=== PATIENT | male | born 1965 | race African-American/Black ===

== ENCOUNTER 2025-02-20 05:50 | Inpatient (IN) | payer BC, OTHER ==
[~2025-02-20] VITALS: Ht 167.6 cm; Wt 94.3 kg
--- NOTE | 2025-02-20 06:12 | ECG ---
[facility] Test Date: 2025-02-20 Test Time: 06:07:10 Pat Name: BERNIE MCKNIGHT Department: Room: 0246T Gender: M Title Vehicle Service Attendant: XENIA : 1965 Requested By: EMERGENCY EMERGENCY Order Number: [id number] Reading MD: Eugene Vazquez Measurements Intervals Oscar Rate: 57 P: 58 WI: 186 QRS: 8 QRSD: 82 T: 4 QT: 402 QTc: 392 Interpretive Statements Sinus rhythm Electronically Signed On 02-21-2025 15:07:13 PST by Eugene Vazquez Please click the below link to view image of tracing.
--- NOTE | 2025-02-20 06:37 | ED.PDOC ---
History of Present Illness HPI Comments 59 year old male with PMHx HTN presents to the ED with a chief complaint of dizziness onset 2 days. Patient states he has been experiencing intermittent dizziness, chest pain, shortness of breath, BLE swelling, elevated BP for the past 2 days. Upon ED arrival, BP was 136/78. Denies, fever, chills, nausea, vo miting, diarrhea, headache, abdominal pain, head injury, dysuria, hematuria. No other symptoms or modifying factors present at this time. Chief Complaint: Dizziness Time Seen by MD: 06:20 Reviewed Notes: Medications, Allergies Allergies: Coded Allergies: Penicillins (Verified Allergy, Unknown, 02/20/25) Information Source: Patient Mode of Arrival: Ambulatory Severity: Moderate Timing: Days Duration: Intermittent Prehospital treatment: None Past Medical History PAST MEDICAL HISTORY: HTN Surgical History: Denies all surgeries Family History Family History: Reviewed,noncontributory to illness, No family hx of Cancer, No family hx of DM, No family hx of Heart beto, No family hx of HTN, No family hx of Kidney beto, No family hx of Liver beto, No family hx of Lung beto, No family hx of Stroke Social History Smoker: Non-Smoker Alcohol: Occasionally Drugs: Marijuana Lives In: Home Constitutional: denies: chills, diaphoresis, fatigue, fever, malaise, sweats, weakness, others EENTM: denies: blurred vision, double vision, ear bleeding, ear discharge, ear drainage, ear pain, ear ringing, eye pain, eye redness, hearing loss, mouth pain, mouth swelling, nasal discharge, nose bleeding, nose congestion, nose pain, photophobia, tearing, throat pain, throat swelling, voice changes, others Respiratory: reports: shortness of breath; denies: cough, hemoptysis, orthopnea, SOB at rest, SOB with excertion, stridor, wheezing, others Cardiovascular: reports: chest pain, others (hypertension); denies: dizzy spells, diaphoresis, Dyspnea on exertion, edema, irregular heart beat, left arm pain, lightheadedness, palpitations, PND, syncope Gastrointestinal: denies: abdomen distended, abdominal pain, blood streaked bowels, constipated, diarrhea, dysphagia, difficulty swallowing, hematemesis, melena, nausea, poor appetite, poor fluid intake, rectal bleeding, rectal pain, vomiting, others Genitourinary: denies: burning, dysuria, flank pain, frequency, hematuria, incontinence, penile discharge, penile sore, pain, testicle pain, testicle swelling, urgency, others Neurological: reports: dizziness; denies: fainting, headache, left sided numbness, left sided weakness, numbness, paresthesia, pre-existing deficit, right sided numbness, right sided weakness, seizure, speech problems, tingling, tremors, weakness, others Musculoskeletal: reports: others (BLE swelling); denies: back pain, gout, joint pain, joint swelling, muscle pain, muscle stiffness, neck pain Integumetry: denies: bruises, change in color, change in hair/nails, dryness, laceration, lesions, lumps, rash, wounds, others Allergic/Immunocompromised: denies: Difficulty Healing, Frequent Infections, Hives, Itching, others Hematologic/Lymphatic: denies: anemia, blood clots, easy bleeding, easy bruising, swollen glands, others Endocrine: denies: excessive hunger, excessive sweating, excessive thirst, excessive urination, flushing, intolerance to cold, intolerance to heat, unexplained weight gain, unexplained weight loss, others Psychiatric: denies: anxiety, bipolar disorder, depression, hopeless, panic disorder, schizophrenia, sleepless, suicidal, others All Other Systems: Reviewed and Negative Physical Exam General Appearance: Moderate Distress, Normal HEENT: Normal ENT Inspection, Pharynx Normal, TMs Normal Neck: Full Range of Motion, Non-Tender, Normal, Normal Inspection Respiratory: Chest Non-Tender, Lungs Clear, No Accessory Muscle Use, No R espiratory Distress, Normal Breath Sounds Cardiovascular: No Edema, No JVD, No Murmur, No Gallop, Normal Peripheral Pulses, Regular Rate/Rhythm Breast Exam: Deferred Gastrointestinal: No Organomegaly, Non Tender, No Pulsatile Mass, Normal Bowel Sounds, Soft Genitalia: Deferred Pelvic: Deferred Rectal: Deferred Extremities: No calf tenderness, Normal capillary refill, Normal inspection, Normal range of motion, Non-tender, No pedal edema Musculoskeletal : Apperance: Normal Neurologic: Alert, 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 Was a procedure done?: No EKG EKG : Pulse Rate (adult): 57 Cardiac Rhythm: NSR Differential Dx Considerations may include: Anemia Electrolyte imbalance X-Ray, Labs, Meds, VS Vital Signs Date Time Temp Pulse Resp B/P (MAP) Pulse Ox O2 Delivery O2 Flow Rate FiO2 02/20/25 06:37 57 02/20/25 06:08 97.6 62 16 136/78 99 97.6 02/20/25 06:07 57 Lab Test 02/20/25 06:47 Range/Units White Blood Count 6.0 4.4-10.8 10^3/uL Red Blood Count 4.41 L 4.5-5.90 10^6/uL Hemoglobin 13.7 13.5-17.5 g/dL Hematocrit 40.4 L 41.0-53.0 % Mean Corpuscular Volume 91.6 80.0-100.0 fL Mean Corpuscular Hemoglobin 31.0 28.0-32.0 pg Mean Corpuscular Hemoglobin Concent 33.8 32.0-36.0 g/dL Red Cell Distribution Width 13.4 11.8-14.3 % Platelet Count 228 140-450 10^3/uL Mean Platelet Volume 7.2 6.9-10.8 fL Neutrophils (%) (Auto) 70.7 37.0-80.0 % Lymphocytes (%) (Auto) 21.1 10.0-50.0 % Monocytes (%) (Auto) 6.6 0.0-12.0 % Eosinophils (%) (Auto) 1.1 0.0-7.0 % Basophils (%) (Auto) 0.5 0.0-2.0 % Neutrophils # (Auto) 4.3 1.6-8.6 10 ^3/uL Lymphocytes # (Auto) 1.3 0.4-5.4 10 ^3/uL Monocytes # (Auto) 0.4 0-1.3 10 ^3/uL Eosinophils # (Auto) 0.1 0-0.8 10 ^3/uL Basophils # (Auto) 0 0-0.2 10 ^3/uL Nucleated Red Blood Cells 0.0 % Sodium Level 142 136-145 mmol/L Potassium Level 4.3 3.5-5.1 mmol/L Chloride Level 107 98-107 mmol/L Carbon Dioxide Level 28 20-31 mmol/L Anion Gap 7 5-15 Blood Urea Nitrogen 12 9-23 mg/dL Creatinine 0.98 0.700-1.30 mg/dL Glomerular Filtration Rate Calc 89 >90 mL/min BUN/Creatinine Ratio 12.2 10.0-20.0 Serum Glucose 96 74-106 mg/dL Calcium Level 9.6 8.7-10.4 mg/dL Troponin I High Sensitivity 3 L </=54 ng/L Patient alert. Complaining of chest pain. Vitals stable. Answering questions. EKG reviewed does not show any acute changes. Was given aspirin. Was given nitro. Blood pressure elevated. Explained to the patient. Continue monitoring. [place] [address] Ph: [phone] DIAGNOSTIC IMAGING Diagnostic Imaging Report : [id number] Signed PATIENT: BERNIE MCKNIGHT ACCT: [id number] UNIT: [id number] : 1965 LOC: ER ROOM / BED: / AGE / SEX: 59 / M ADM STATUS: REG ER SERVICE 2 ORDERING PHYSICIAN: ANDREW VIGIL MD PROCEDURE(s): CXRP - CHEST PORTABLE REASON: sob ORDER NUMBER(s): [id number], ACCESSION NUMBER(s): [id number] CLINICAL INFORMATION: Shortness of breath. TECHNIQUE: Single AP portable chest radiograph was obtained. COMPARISON: None FINDINGS: Lungs: Clear. Cardiac: Heart size is within normal limits. Pulmonary vasculature: Unremarkable. Mediastinum/mary ellen: Unremarkable. Bones: No acute osseous abnormality identified. Other: No other significant findings. IMPRESSION: No evidence of acute disease in the chest. ATED BY: BOY CHEUNG DO DICTATED DATE/TIME: 02/20/25705 SIGNED BY: BOY CHEUNG DO SIGNED DATE/TIME: 02/20/25705 CC: Time of 1ST Reevaluation: 06:50 Reevaluation 1ST: Unchanged Patient Education/Counseling: Diagnosis, Treatment, Prognosis Family Education/Counseling: No Family Present SEPSIS Sepsis Screen Date sepsis recognized/suspect: Feb 20, 2025 Time Sepsis recognized/suspect: 0612 Recent Procedure: No On Antibiotic Therapy: No Respiratory Rate >20: No Heart Rate >90: No Temp<36 C (96.8 F) or >38.3 C: No SBP <90 or MAP <65 mmHG: No New Acute Mental Status Change: No Is the patient on CPAP, BIPAP,: No Physician Orders Chest Portable (02/20/25 06:33) Urinalysis (02/20/25 06:33) Troponin-I Hs (02/20/25 07:34) Troponin-I Hs (02/20/25 09:34) Vital Signs Date Time Temp Pulse Resp B/P (MAP) Pulse Ox O2 Delivery O2 Flow Rate FiO2 02/20/25 06:37 57 02/20/25 06:08 97.6 62 16 136/78 99 97.6 02/20/25 06:07 57 Laboratory Tests Test 02/20/25 06:47 White Blood Count 6.0 10^3/uL (4.4-10.8) Departure 1 Departure Time of Disposition: 07:15 Impression: Primary Impression: Chest pain of unknown etiology Additional Impression: Hypertensive urgency Disposition: 09 ADMITTED INPATIENT Admit to: Med Surg Condition: Guarded Critical Care Note Critical Care Time?: Yes (90 min-critical care time only) Stability Stability form required: No Heart Score Heart Score: Heart Score Response (Comments) Value History Slightly Suspicious 0 EKG N/A 0 Age 45-64 1 Risk Factors >3 or Hx ASHD 2 Troponin Normal limit 0 Total 3 I personally scribed for ANDREW VIGIL MD ([email or web address]) on 02/20/25 at 06:37. Electronically submitted by June Peralta ([email or web address]). I personally scribed for ANDREW VIGIL MD ([email or web address]) on 02/20/25 at 07:32. Electronically submitted by June Peralta ([email or web address]). ANDREW VIGIL MD Feb 20, 2025 06:37
[2025-02-20 07:06] LABS: Hematocrit 40.4 % (41.0-53.0); Hemoglobin 13.7 g/dL (13.5-17.5); Mean Corpuscular Hemoglobin 31.0 pg (28.0-32.0); Mean Corpuscular Volume 91.6 fL (80.0-100.0); Nucleated Red Blood Cells % 0.0 %
--- NOTE | 2025-02-20 07:09 | DVH ---
CLINICAL INFORMATION: Shortness of breath. TECHNIQUE: Single AP portable chest radiograph was obtained. COMPARISON: None FINDINGS: Lungs: Clear. Cardiac: Heart size is within normal limits. Pulmonary vasculature: Unremarkable. Mediastinum/mary ellen: Unremarkable. Bones: No acute osseous abnormality identified. Other: No other significant findings. IMPRESSION: No evidence of acute disease in the chest.
[2025-02-20 07:12] LABS: Chloride 107 mmol/L (98-107); Potassium 4.3 mmol/L (3.5-5.1); Sodium 142 mmol/L (136-145)
[2025-02-20 07:13] LABS: Anion Gap 7 (5-15); Carbon Dioxide 28 mmol/L (20-31)
[2025-02-20 07:14] LABS: Calcium 9.6 mg/dL (8.7-10.4)
[2025-02-20 07:18] LABS: Glucose 96 mg/dL (74-106)
[2025-02-20 07:19] LABS: BUN/Creatinine Ratio 12.2 (10.0-20.0); Blood Urea Nitrogen 12 mg/dL (9-23)
[2025-02-20] MEDS: NITROGLYCERIN 0.4 MG SL TAB SL ONE (08:01)
[2025-02-20 09:52] LABS: Urine Protein, UAD Negative (Negative)
[2025-02-20] MEDS ORDERED: MORPHINE SULFATE INJ 2 MG/ml SYRG IV PRN (10:00)
[2025-02-20] MEDS ORDERED: NITROGLYCERIN 0.4 MG SL TAB SL PRN (10:00)
[2025-02-20 11:36] VITALS: PULSE 86; O2SAT 96
[2025-02-20 13:00] VITALS: BP 128/67; PULSE 60; RESP 18; TEMP 97.6; O2SAT 98
--- NOTE | 2025-02-20 13:07 | DVHHPRES ---
History of Present Illness Resident Creating Document: SHARLENE PALOMARES RESIDENT History of Present Illness 59-year-old male patient with past medical history of hypertension presented with complaints of dizziness, chest pain, shortness of breath, bilateral lower extremity swelling and elevated blood pressure for one day. Patient mentioned that yesterday he started having dizziness and felt lethargic, mentioned "could not grab what is happening", was noted by and decided to come to the ER. He also mentioned associated chest pain which increased on deep breathing, increased on activity, no improvement with lying flat or leaning forward, sharp in quality, substernal in location. Patient mentioned that his blood pressure in the home was in 180s. He mentioned that in last weaker in [facility] he was previously admitted for similar complaints, and was told by the doctor that he has an abnormal EKG and abnormal lab values. He does not remembe r the specific lab values that were elevated. Patient also mentioned that yesterday he noticed bilateral lower extremity edema while he was sitting on the chair, but today does not mentioned of any complaints of edema. Patient said that he has not walked one mile in a long time, but feels shortness of breath sometimes when he is going to the restroom. He also mentioned occasionally waking up in the night catching breath. He denied any palpitations, headache, nausea, vomiting, abdominal pain, diarrhea, constipation. Past medical history Hypertension past surgical history No Recent surgery Medication history Chlorthalidone Losartan Amlodipine Allergic history Penicillins Family history "Heart attack" : Mother at the age age of 55 Stomach cancer: Father Social history Patient denied smoking, mentioned occasional marijuana intake, denied other drugs intake Drinks 3-4 beers every day, last drink was yesterday Patient is changing his PCP as he moved from [place], was supposed to have 1st appointment today Review of Systems Review of Systems As described in the HPI Allergies: Coded Allergies: Penicillins (Verified Allergy, Unknown, 02/20/25) Medications Current Medications Medications Dose Ordered Sig/Onur Route Start Time Stop Time Status Last Admin Dose Admin Nitroglycerin 0.4 mg Q5MINP PRN SL 02/20/25 10:00 Morphine Sulfate 2 mg Q30M PRN IV 02/20/25 10:00 Exam Vital Signs Vital Signs Date Time Temp Pulse Resp B/P (MAP) Pulse Ox O2 Delivery O2 Flow Rate FiO2 02/20/25 10:22 165/73 02/20/25 10:06 98.1 58 15 98 98.1 Exam Examination General Appearance: Alert, Oriented X3, Cooperative, No acute distress HEENT: EOMI Respiratory: Clear to auscultation, Normal air movement Cardiovascular: Regular rate, Normal S1, Normal S2 Abdominal: Normal bowel sounds Extremities: No cyanosis, No edema, Normal pulses, No tenderness/swelling Skin: No rashes, No breakdown Neuro: Normal speech and tone Labs/Xrays Labs Test 02/20/25 11:05 02/20/25 08:02 02/20/25 07:52 02/20/25 06:47 Range/Units D-Dimer, Quantitative 0.29 0.0-0.49 mg/L FEU B-Type Natriuretic Peptide 31.51 0-100 pg/mL Urine Color Colorless Yellow Urine Clarity Clear Clear Urine pH 7.0 5.0-9.0 Urine Specific Mccool 1.010 1.001-1.035 Urine Protein Negative Negative Urine Ketones Negative Negative Urine Blood Negative Negative /uL Urine Nitrite Negative Negative Urine Bilirubin Negative Negative Urine Urobilinogen Normal Negative mg/dL Urine Leukocyte Esterase Negative Negative /uL Urine RBC <1 0 - 3 /hpf Urine Microscopic WBC < 1 0-3 /HPF Urine Squamous Epithelial Cells None seen <5 /hpf Urine Bacteria None seen None Seen /hpf Urine Glucose Normal Normal mg/dL Troponin I High Sensitivity 3 L </=54 ng/L White Blood Count 6.0 4.4-10.8 10^3/uL Red Blood Count 4.41 L 4.5-5.90 10^6/uL Hemoglobin 13.7 13.5-17.5 g/dL Hematocrit 40.4 L 41.0-53.0 % Mean Corpuscular Volume 91.6 80.0-100.0 fL Mean Corpuscular Hemoglobin 31.0 28.0-32.0 pg Mean Corpuscular Hemoglobin Concent 33.8 32.0-36.0 g/dL Red Cell Distribution Width 13.4 11.8-14.3 % Platelet Count 228 140-450 10^3/uL Mean Platelet Volume 7.2 6.9-10.8 fL Neutrophils (%) (Auto) 70.7 37.0-80.0 % Lymphocytes (%) (Auto) 21.1 10.0-50.0 % Monocytes (%) (Auto) 6.6 0.0-12.0 % Eosinophils (%) (Auto) 1.1 0.0-7.0 % Basophils (%) (Auto) 0.5 0.0-2.0 % Neutrophils # (Auto) 4.3 1.6-8.6 10 ^3/uL Lymphocytes # (Auto) 1.3 0.4-5.4 10 ^3/uL Monocytes # (Auto) 0.4 0-1.3 10 ^3/uL Eosinophils # (Auto) 0.1 0-0.8 10 ^3/uL Basophils # (Auto) 0 0-0.2 10 ^3/uL Nucleated Red Blood Cells 0.0 % Sodium Level 142 136-145 mmol/L Potassium Level 4.3 3.5-5.1 mmol/L Chloride Level 107 98-107 mmol/L Carbon Dioxide Level 28 20-31 mmol/L Anion Gap 7 5-15 Blood Urea Nitrogen 12 9-23 mg/dL Creatinine 0.98 0.700-1.30 mg/dL Glomerular Filtration Rate Calc 89 >90 mL/min BUN/Creatinine Ratio 12.2 10.0-20.0 Serum Glucose 96 74-106 mg/dL Calcium Level 9.6 8.7-10.4 mg/dL SEPSIS Sepsis Screen Date sepsis recognized/suspect: Feb 20, 2025 Time Sepsis recognized/suspect: 611 Recent Procedure: No On Antibiotic Therapy: No Respiratory Rate >20: No Heart Rate >90: No Temp<36 C (96.8 F) or >38.3 C: No SBP <90 or MAP <65 mmHG: No New Acute Mental Status Change: No Is the patient on CPAP, BIPAP,: No Physician Orders Chest Portable (02/20/25 06:33) Admit (02/20/25 09:54) Allergies (02/20/25 09:54) Code Status (02/20/25 09:54) Complete Blood Count (02/21/25 04:00) Comprehensive Metabolic Panel (02/21/25 04:00) Echo 2d Mode Cardiac Dop (02/20/25 09:54) Nitroglycerin Sublingual (Ntrostat Subli (02/20/25 10:00) Morphine Sulfate Injection (02/20/25 10:00) Notify Of Changes From Base (02/20/25 09:54) Brand Leader For 24 Hours (02/20/25 09:54) Emergency Dysrhythmia Protocol (02/20/25 09:54) Rhythm Strips Once Every Shift (02/20/25 09:54) Electrocardigram (02/20/25 09:54) Renin Activity And Aldosterone (02/20/25 09:54) Drug Screen (02/20/25 09:54) Vital Signs Date Time Temp Pulse Resp B/P (MAP) Pulse Ox O2 Delivery O2 Flow Rate FiO2 02/20/25 10:22 165/73 02/20/25 10:06 98.1 58 15 165/73 (103) 98 98.1 02/20/25 08:01 129/79 02/20/25 07:49 55 02/20/25 07:49 98.6 55 16 129/79 (96) 100 98.6 02/20/25 06:37 57 02/20/25 06:08 97.6 62 16 136/78 99 97.6 02/20/25 06:07 57 Laboratory Tests Test 02/20/25 06:47 White Blood Count 6.0 10^3/uL (4.4-10.8) Medications Medications Dose Ordered Sig/Onur Route Start Time Stop Time Status Last Admin Dose Admin Aspirin 325 mg ONCE ONCE PO 02/20/25 06:45 02/20/25 06:46 DC 02/20/25 07:58 325 MG Nitroglycerin 0.4 mg ONCE ONCE SL 02/20/25 06:45 02/20/25 06:46 DC 02/20/25 08:01 0.4 MG Assessment/Plan Assessment/Plan Assessment/plan # hypertensive crisis, currently resolved # hypertension, likely essential hypertension, currently on three antihypertensive medications, ? Resistant hypertension # chest pain, likely due to hypertensive crisis, possibility of coronary artery disease considering multiple risk factors including family history, associated symptoms of dyspnea, pedal edema, PND # ?Heart failure, systolic/diastolic heart failure -resume oral home Meds for hypertension -chest x-ray and EKG -BNP and echo for evaluation for heart failure -renin/angiotensin levels for evaluation of questionable resistant hypertension -D-dimer to rule out PE, low risk, Well score 0 ( considering the type of pruritic chest pain which increases on deep inspiration ) -TSH/hemoglobin A1c/lipid panel ( workup for hypertension) Cardiology consulted for evaluation for stress test Aspirin 325 mg was given in the ER Continue with 81 mg daily as of now, DC if CAD ruled out # hyperlipidemia -resume atorvastatin home Meds 40 mg HS Ordered lipid panel # DVT prophylaxis Patient is currently ambulatory Code status discussed with the patient for greater than 21 minutes, full code Case discussion with Dr. Mei Plan discussed with: Patient, Other My Orders Orders - SHARLENE PALOMARES Procedure Category Date Status Time Admit ADMIT 02/20/25 Transmitted 09:54 Allergies HERRERA 02/20/25 In Process 09:54 Code Status CODE 02/20/25 Transmitted 09:54 Complete Blood Count LAB 02/21/25 Verified 04:00 Comprehensive LAB 02/21/25 Verified Metabolic Panel 04:00 Echo 2d Mode Cardiac US 02/20/25 Transmitted DOP 09:54 Nitroglycerin PHA 02/20/25 In Process Sublingual (Ntrostat 10:00 Morphine Sulfate PHA 02/20/25 In Process Injection 10:00 Notify Of Changes [facility] 02/20/25 In Process From Base 09:54 Brand Leader For [facility] 02/20/25 In Process 24 Hours 09:54 Emergency Dysrhythmia [facility] 02/20/25 In Process Protocol 09:54 Rhythm Strips Once [facility] 02/20/25 In Process Every Shift 09:54 Electrocardigram EKG 02/20/25 Logged 09:54 Renin Activity And LAB 02/20/25 In Process Aldosterone 09:54 Drug Screen LAB 02/20/25 Logged 09:54 Date of Service: Feb 20, 2025 Billing Provider: JAYA MEI MD Common Visit Codes: 17226-[id number] INP/OBS CARE (HIGH) Secondary Visit Codes: 26342-[id number] CARE PLAN 30 MINUTES SHARLENE PALOMARES Feb 20, 2025 13:07 JAYA MEI MD Feb 21, 2025 01:47
[2025-02-20] MEDS ORDERED: ATOR40TA52 PO (13:09)
[2025-02-20] MEDS ORDERED: CHLO25TA2 PO (13:09)
[2025-02-20] MEDS ORDERED: LOSA-534 PO (13:09)
[2025-02-20 14:33] LABS: Alanine Aminotransferase 25.0 U/L (7-40); Albumin 4.3 g/dL (3.2-4.8); Alkaline Phosphatase 107.0 U/L (46-116); Bilirubin, Direct 0.1 mg/dL (<0.3); Total Protein 7.0 g/dL (5.7-8.2)
[2025-02-20 14:34] LABS: Bilirubin, Total 0.4 mg/dL (0.2-1.0)
[2025-02-20 15:09] LABS: Triglycerides 66 mg/dL (< 150)
[2025-02-20 15:18] LABS: Cholesterol 237 mg/dL (< 200); HDL Cholesterol 104 mg/dL (40-59)
[2025-02-20 17:00] VITALS: BP 125/68; PULSE 60; RESP 18; TEMP 98; O2SAT 100
[2025-02-20 20:00] VITALS: PULSE 62; RESP 18; O2SAT 97
[2025-02-20 21:00] VITALS: BP 154/87; PULSE 62; RESP 18; TEMP 98.6; O2SAT 97
[2025-02-20] MEDS: ATORVASTATIN 20 MG TAB PO SCH (21:46)
[2025-02-20] MEDS: HYDROcodone-ACET 5/325MG TAB PO ONE (22:54)
[2025-02-20 23:45] LABS: Amphetamine Screen, Urine Neg (NEGATIVE); Barbiturate Scree,Urine Neg (NEGATIVE); Benzodiazephine Screen, Urine Neg (NEGATIVE); Cocaine Screen, Urine Neg (NEGATIVE); Opiate Scree,Urine Neg (NEGATIVE); Phencyclidine Screen, Urine Neg (NEGATIVE)
[2025-02-20 23:46] LABS: Cannabinoid Screen, Urine Pos (NEGATIVE)
[2025-02-21] VITALS (8 sets, daily range): BP systolic 120–150; BP diastolic 72–90; PULSE 54–69; RESP 17–18; TEMP 98.2–98.8; O2SAT 96–99
[2025-02-21 06:37] LABS: Hematocrit 41.4 % (41.0-53.0); Hemoglobin 14.2 g/dL (13.5-17.5); Mean Corpuscular Hemoglobin 31.1 pg (28.0-32.0); Mean Corpuscular Volume 90.6 fL (80.0-100.0); Nucleated Red Blood Cells % 0.0 %
[2025-02-21 07:11] LABS: Alanine Aminotransferase 21 U/L (7-40); Alkaline Phosphatase 78 U/L (46-116); Anion Gap 9 (5-15); BUN/Creatinine Ratio 10.4 (10.0-20.0); Blood Urea Nitrogen 11 mg/dL (9-23); Calcium 9.5 mg/dL (8.7-10.4); Carbon Dioxide 26 mmol/L (20-31); Chloride 105 mmol/L (98-107); Glucose 96 mg/dL (74-106); Potassium 3.9 mmol/L (3.5-5.1); Sodium 140 mmol/L (136-145); Total Protein 6.8 g/dL (5.7-8.2)
[2025-02-21 07:12] LABS: Albumin 4.0 g/dL (3.2-4.8); Bilirubin, Total 0.7 mg/dL (0.2-1.0)
[2025-02-21] MEDS: CHLORTHALIDONE 25 MG TAB PO SCH (09:25)
[2025-02-21] MEDS: LOSARTAN POTASSIUM 50 MG TAB PO SCH (09:26)
--- NOTE | 2025-02-21 10:49 | DVHINCON2 ---
LIANNA WINCHESTER [facility] 02/21/25 1049: Date Seen: Feb 21, 2025 Referring Physician MD Gayla Reason for Consultation Chest pain History of Present Illness This is a 59-year-old man who presented to the emergency room with a chief complaint of dizziness for approximately one week. The patient reports waking up yesterday morning with some dizziness and lightheadedness associated with chest pain described as substernal, nonradiating, non provoked, sharp in nature, and worse with inspiration. Also reports an associated systolic blood pressure in the 180s mmHg. States he has been compliant with the his losartan, amlodipine, and chlorthalidone therapy at home. Reports an optimal functional capacity including climbing flights of stairs without exertional angina or TRINH. He has undergone full cardiac work-up in the past including a stress test, transthoracic echocardiogram, and coronary angiogram with cardiac cat heterization ([facility] in [place], [place]) all with unremarkable findings. Significant medical history includes hypertension, dyslipidemia, obesity, alcohol dependance including 6 beers/day, and former cocaine use for 6 years quitting 20 years ago. Past Medical History Past medical history reviewed. No other significant than mentioned above. Past Surgical History Denies any past surgical history. Family History: Patient reports no known family medical history. Family History Family history reviewed. Mother from massive [place] at 59 y.o. Social History Denies the use of illicit drugs or tobacco use. Admits to daily alcohol use, six pack beer on daily basis. Quit cocaine use 20 years ago. Allergies: Coded Allergies: Penicillins (Verified Allergy, Unknown, 02/20/25) Home Meds Reported Medications Atorvastatin Calcium (ATORVASTATIN CALCIUM) 40 Mg Tab, 1 TAB PO DAILY 02/20/25 Losartan Potassium (Losartan Potassium) 50 Mg Tab, 1 TAB PO DAILY 02/20/25 Chlorthalidone (Chlorthalidone) 25 Mg Tab, 1 TAB PO DAILY 02/20/25 Home Meds Home medications reviewed. Current Medications Current Medications Medications (Trade) Dose Ordered Sig/Onur Route PRN Reason Start Time Stop Time Status Last Admin Chlorthalidone (Chlorthalidone) 25 mg DAILY PO 02/21/25 10:00 02/21/25 09:25 Losartan Potassium (Cozaar Tablet) 50 mg DAILY PO 02/21/25 10:00 02/21/25 09:26 Atorvastatin Calcium (Lipitor) 40 mg HS PO 12/1/25 22:00 02/20/25 21:46 Amlodipine Besylate (Norvasc Tablet) 5 mg DAILY PO 02/21/25 10:00 02/21/25 09:27 Aspirin 81 mg DAILY PO 02/21/25 10:00 02/21/25 09:26 Acetaminophen (Tylenol Tablet) 650 mg Q6HP PRN PO MILD PAIN (1-3 PAIN SCALE) 02/20/25 21:00 Review of Systems Constitutional: No symptom reported Ears, Nose, & Throat: No symptom reported Eyes: No symptom reported Neurological: Dizziness Pulmonary/Respiratory: No symptom reported Cardiovascular: Chest pain Gastrointestinal: No symptom reported Genitourinary: No symptom reported Musculoskeletal: No symptom reported Skin: No symptom reported Psychiatric: No symptom reported Endocrine: No symptom reported Hemotologic/Lymphatic: No symptom reported Vital Signs Vital Signs Date Time Temp Pulse Resp B/P (MAP) Pulse Ox O2 Delivery O2 Flow Rate FiO2 02/21/25 09:27 147/79 02/21/25 08:05 Room Air* 0 21 02/21/25 08:00 54 02/21/25 05:00 98.4 18 98 98.4 Physical Exam General Appearance: Cooperative. Well developed. Obese. In no acute distress Head Exam: Normal inspection Neck Exam: Normal inspection. Non-tender. Normal alignment Pulmonary/Respiratory: Chest non-tender. Clear bilateral breath sounds Cardiovascular/Chest: Regular rate and rhythm. S1, S2. Sinus rhythm. No JVD. Peripheral Pulses: 2+ Radial (R). 2+ Radial (L). 2+ Pedal (R). 2+ Pedal (L) Abdominal Exam: Normal bowel sounds Ankle Exam: Negative ankle edema Lower extremities: Negative lower extremity edema Neuro/Mental Status: A&O x4. Coherent Thoughts/Psych: Normal thought pattern. Appropriate mood and affect. Good judgement and insight Appearance: In no acute distress Skin Exam: Normal inspection. Normal color. Warm. Dry Labs/Diagnostic Data Labs Test 02/21/25 05:56 02/20/25 11:05 02/20/25 08:02 02/20/25 07:52 Range/Units White Blood Count 5.4 4.4-10.8 10^3/uL Red Blood Count 4.57 4.5-5.90 10^6/uL Hemoglobin 14.2 13.5-17.5 g/dL Hematocrit 41.4 41.0-53.0 % Mean Corpuscular Volume 90.6 80.0-100.0 fL Mean Corpuscular Hemoglobin 31.1 28.0-32.0 pg Mean Corpuscular Hemoglobin Concent 34.3 32.0-36.0 g/dL Red Cell Distribution Width 13.7 11.8-14.3 % Platelet Count 235 140-450 10^3/uL Mean Platelet Volume 7.2 6.9-10.8 fL Neutrophils (%) (Auto) 63.5 37.0-80.0 % Lymphocytes (%) (Auto) 26.8 10.0-50.0 % Monocytes (%) (Auto) 7.1 0.0-12.0 % Eosinophils (%) (Auto) 2.4 0.0-7.0 % Basophils (%) (Auto) 0.2 0.0-2.0 % Neutrophils # (Auto) 3.4 1.6-8.6 10 ^3/uL Lymphocytes # (Auto) 1.5 0.4-5.4 10 ^3/uL Monocytes # (Auto) 0.4 0-1.3 10 ^3/uL Eosinophils # (Auto) 0.1 0-0.8 10 ^3/uL Basophils # (Auto) 0 0-0.2 10 ^3/uL Nucleated Red Blood Cells 0.0 % Sodium Level 140 136-145 mmol/L Potassium Level 3.9 3.5-5.1 mmol/L Chloride Level 105 98-107 mmol/L Carbon Dioxide Level 26 20-31 mmol/L Anion Gap 9 5-15 Blood Urea Nitrogen 11 9-23 mg/dL Creatinine 1.06 0.700-1.30 mg/dL Glomerular Filtration Rate Calc 81 >90 mL/min BUN/Creatinine Ratio 10.4 10.0-20.0 Serum Glucose 96 74-106 mg/dL Calcium Level 9.5 8.7-10.4 mg/dL Total Bilirubin 0.7 0.2-1.0 mg/dL Aspartate Amino Transferase (AST) 20 13-40 U/L Alanine Aminotransferase (ALT) 21 7-40 U/L Alkaline Phosphatase 78 46-116 U/L Total Protein 6.8 5.7-8.2 g/dL Albumin 4.0 3.2-4.8 g/dL D-Dimer, Quantitative 0.29 0.0-0.49 mg/L FEU B-Type Natriuretic Peptide 31.51 0-100 pg/mL Urine Color Colorless Yellow Urine Clarity Clear Clear Urine pH 7.0 5.0-9.0 Urine Specific [place] 1.010 1.001-1.035 Urine Protein Negative Negative Urine Ketones Negative Negative Urine Blood Negative Negative /uL Urine Nitrite Negative Negative Urine Bilirubin Negative Negative Urine Urobilinogen Normal Negative mg/dL Urine Leukocyte Esterase Negative Negative /uL Urine RBC <1 0 - 3 /hpf Urine Microscopic WBC < 1 0-3 /HPF Urine Squamous Epithelial Cells None seen <5 /hpf Urine Bacteria None seen None Seen /hpf Urine Glucose Normal Normal mg/dL Urine Opiates Screen Neg NEGATIVE Urine Fentanyl Screen Neg NEGATIVE Urine Barbiturates Screen Neg NEGATIVE Urine Phencyclidine Screen Neg NEGATIVE Urine Amphetamines Screen Neg NEGATIVE Urine Benzodiazepines Screen Neg NEGATIVE Urine Cocaine Screen Neg NEGATIVE Urine Cannabinoids Screen Pos NEGATIVE Direct Bilirubin 0.1 <0.3 mg/dL Troponin I High Sensitivity 3 L </=54 ng/L Triglycerides Level 66 < 150 mg/dL Cholesterol Level 237 H < 200 mg/dL LDL Cholesterol 117 H < 100 mg/dL HDL Cholesterol 104 H 40-59 mg/dL Thyroid Stimulating Hormone (TSH) 2.75 0.55-4.78 uIU/mL Test 02/20/25 06:47 Range/Units Hemoglobin A1c 5.7 <5.7 % A1C Assessment Chest pain in the setting of hypertensive urgency Rule out structural heart disease Prediabetes, newly diagnosed Dyslipidemia Alcohol dependence Obesity Plan/Recommendation (Dr. Pat) The patient presents with chest pain in the setting of hypertensive urgency. A 12 lead electrocardiogram revealed a sinus bradycardia rhythm with nonspecific ST-T wave segment changes. Continue aggressive blood pressure control for a target SBP <140 mmHg as well as low-Na diet, lipid-lowering agent, and risk factor modifications. Continue further cardiac evaluation with a transthoracic echocardiogram to rule out structural heart disease. Consider an outpatient stress test if deemed necessary. In the setting of an unremarkable echocardiogram, there is no further cardiac workup indicated at this time. Thank you for allowing us to participate in this patient's care. Please call if you have any questions or concerns. This medical document was created using an electronic medical record system with voice recognition software and computerized dictation system. Although this document has been carefully reviewed, there might still be some phonetic and typographical errors. Occasional wrong-word or ``sound-alike substitutions may have occurred due to the inherent limitations of voice recognition software. These areas are purely typographical due to imperfections of the software programs and do not reflect any compromise in the patient's medical care. Please read the chart carefully and recognize, using context, where these substitutions have occurred. Plan discussed with: Patient, Spouse, Other [place]HA Physical activity limitations: NA Date of Service: Feb 21, 2025 Billing Provider: LIANNA WINCHESTER [facility]PATCH[facility] Cardiology Common Codes: 60121-[id number] INP/OBS CARE (High) KJ PAT MD 02/21/25 1123: Date Seen: Feb 21, 2025 Referring Physician ATTESTATION NOTE; Patient was seen and examined by myself. Plan was formulated with Enedina Winchester cardiology PA as above. Briefly this is a 59-year-old man with hypertension and prior history of cocaine use but no other known medical problems per patient's report. He presented after having an acute episode of pleuritic type chest pain yesterday when he was about to get ready to go to work. 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 Yesterday's episode happened at rest and when he took a deep breath. Patient reports he recently moved from [place] to the area. Reports he established PCP and has an upcoming appointment. Patient had prior cardiac workup including coronary angiogram and stress test in [facility] few years ago that were done for chest pain. Reports both times the tests were normal. Patient never had intervention or PCI. At the time of exam patient denies having chest pain or recurrence of his chest discomfort. High sensory troponin levels have been unremarkable. EKG does not suggest dynamic ischemic changes. Advised the patient to follow up with his upcoming PCP appointment for Cardiology referral to establish cardiac care in the area and further workup is indicated as outpatient. Patient expresses understanding and agrees with the plan Kj Pat Interventional and Structural Cardiology Family History: Patient reports no known family medical history. Allergies: Coded Allergies: Penicillins (Verified Allergy, Unknown, 02/20/25) Home Meds Reported Medications Atorvastatin Calcium (ATORVASTATIN CALCIUM) 40 Mg Tab, 1 TAB PO DAILY 02/20/25 Losartan Potassium (Losartan Potassium) 50 Mg Tab, 1 TAB PO DAILY 02/20/25 Chlorthalidone (Chlorthalidone) 25 Mg Tab, 1 TAB PO DAILY 02/20/25 LIANNA WINCHESTER Feb 21, 2025 10:49 KJ PAT MD Feb 21, 2025 11:23
--- NOTE | 2025-02-21 14:38 | DVHPN2 ---
Reviewed: H&P Changes from previous H/P or p: No Changes General: Per HPI Objective Vitals Vital Signs Date Time Temp Pulse Resp B/P (MAP) Pulse Ox O2 Delivery O2 Flow Rate FiO2 02/21/25 09:27 147/79 02/21/25 09:00 98.4 57 17 98 98.4 02/21/25 08:05 Room Air* 0 21 Intake/Output Intake and Output 02/21/25 07:00 Intake Total 1200 ml Output Total 800 ml Balance 400 ml Intake Oral 1200 ml Output Urine Total 800 ml Exam GEN: Healthy appearing, well-developed, NAD. HEENT: NC/AT; MMM. CV: RRR, no m/r/g. LUNGS: CTAB, no w/r/c. ABD: Soft, NT/ND, NBS, no masses or organomegaly. EXT: skin Warm, well perfused. no rashes. No clubbing, cyanosis, or edema. NEURO: Ambulating with no limitations. No focal deficits. Medications Current Medications Medications Dose Ordered Sig/Onur Route Start Time Stop Time Status Last Admin Dose Admin Nitroglycerin 0.4 mg Q5MINP PRN SL 02/20/25 10:00 Morphine Sulfate 2 mg Q30M PRN IV 02/20/25 10:00 Losartan Potassium 50 mg DAILY PO 02/21/25 10:00 02/21/25 09:26 50 MG Atorvastatin Calcium 40 mg HS PO 02/20/25 22:00 02/20/25 21:46 40 MG Amlodipine Besylate 5 mg DAILY PO 02/21/25 10:00 02/21/25 09:27 5 MG Aspirin 81 mg DAILY PO 02/21/25 10:00 02/21/25 09:26 81 MG Acetaminophen 650 mg Q6HP PRN PO 02/20/25 21:00 Tamsulosin HCl 0.4 mg QPM PO 02/21/25 18:00 Laboratory Results Laboratory Tests 02/21/25 05:56 Chemistry Test 02/21/25 05:56 Albumin 4.0 g/dL (3.2-4.8) Calcium Level 9.5 mg/dL (8.7-10.4) Total Protein 6.8 g/dL (5.7-8.2) LFT Test 02/21/25 05:56 Alanine Aminotransferase (ALT) 21 U/L (7-40) Alkaline Phosphatase 78 U/L (46-116) Aspartate Amino Transferase (AST) 20 U/L (13-40) Total Bilirubin 0.7 mg/dL (0.2-1.0) Urinalysis Test 02/20/25 08:02 Urine Color Colorless (Yellow) Urine Clarity Clear (Clear) Urine pH 7.0 (5.0-9.0) Urine Specific [place] 1.010 (1.001-1.035) Urine Protein Negative (Negative) Urine Ketones Negative (Negative) Urine Blood Negative /uL (Negative) Urine Nitrite Negative (Negative) Urine Bilirubin Negative (Negative) Urine Urobilinogen Normal mg/dL (Negative) Urine Leukocyte Esterase Negative /uL (Negative) Urine RBC <1 /hpf (0 - 3) Urine Microscopic WBC < 1 /HPF (0-3) Urine Squamous Epithelial Cells None seen /hpf (<5) Urine Bacteria None seen /hpf (None Seen) Urine Glucose Normal mg/dL (Normal) Labs and/or images reviewed: Labs reviewed by me, Image(s) reviewed by me Assessment/Plan Assessment/Plan 59-year-old male patient with past medical history of hypertension presented with complaints of dizziness, chest pain, shortness of breath, bilateral lower extremity swelling and elevated blood pressure for one day. Patient mentioned that yesterday he started having dizziness and felt lethargic, mentioned "could not grab what is happening", was noted by and decided to come to the ER. He also mentioned associated chest pain which increased on deep breathing, increased on activity, no improvement with lying flat or leaning forward, sharp in quality, substernal in location. Patient mentioned that his blood pressure in the home was in 180s. He mentioned that in last weaker in [facility] he was previously admitted for similar complaints, and was told by the doctor that he has an abnormal EKG and abnormal lab values. He does not remember the specific lab values that were elevated. Patient also mentioned that yesterday he noticed bilateral lower extremity edema while he was sitting on the chair, but today does not mentioned of any complaints of edema. Patient said that he has not walked one mile in a long time, but feels shortness of breath sometimes when he is going to the restroom. He also mentioned occasionally waking up in the night catching breath. He denied any palpitations, headache, nausea, vomiting, abdominal pain, diarrhea, constipation. 12/2: Waiting for echocardiogram. We will stop hydrochlorothiazide/chlorthalidone. We will continue amlodipine 5, continue losartan 50. We will start tamsulosin 0.4. Holding off finasteride. Per patient request. We will do postvoid residual, concern for BPH.. No rales, no pedal edema, no complaints of dyspnea on exertion. Low concern for CHF but we will get echo cardiogram given the concern for significant severe hypertension. Diagnosis: Hypertensive crisis Hypotension, incision hypotension, reason hypertension possible BPH likely Chest pain, likely due to above, Hypertensive heart disease possible, LVH possible, we will rule out diastolic heart failure Hyperlipidemia Plan: Cardiology consulted for evaluation for stress test Aspirin 325 mg was given in the ER Continue with 81 mg daily as of now, DC if CAD ruled out -resume atorvastatin home Meds 40 mg HS Ordered lipid panel Patient is currently ambulatory no DVT prophylaxis Tele Full code Plan discussed with: Patient My Orders Orders - WANDY MESA MD Procedure Category Date Status Time Tamsulosin PHA 02/21/25 In Process Hydrochloride (Flomax) 18:00 Bladder Scan ORDERS 02/21/25 Transmitted 13:51 Date of Service: Feb 21, 2025 Billing Provider: WANDY MESA MD Common Visit Codes: [id number] INP/OBS CARE(HIGH) WANDY MESA MD Feb 21, 2025 14:38
[2025-02-21] MEDS: TAMSULOSIN HYDROCHLORIDE 0.4 MG CAP PO SCH (17:57)
--- NOTE | 2025-02-21 18:23 | DVHSR ---
APPROVED REPORT EXAM: Two-dimensional and M-mode echocardiogram with Doppler and color Doppler. Blood Pressure: 132/84 mmHg INDICATION SOB with bilateral lower ext swelling, Rule out CHF RISK FACTORS Height: 66, Weight: 209 DIMENSIONS LVDd 4.5 (3.8-5.7cm) LA (2D) 4.2 (1.9-4.0cm) Aortic Root 4.3 (2.0-3.7cm) LVDs 3.1 (2.5-4.0cm) LA (MM) (1.9-4.0cm) Aortic Cusp Exc 1.8 (1.5-2.0cm) EF (%) 60.0 (55-70%) Rt. Atrium 3.9 (1.9-4.0cm) Asc. Aorta cm Mitral Valve Mitral Mitral Stenosis E wave 0.74m/s MV Mean GR. mmHg A wave 0.90m/s MV Peak GR. mmHg E/A ratio 0.8 2D MVA cm2 DECEL Time 321ms PRESS 1/2 Time 124ms IVRT ms Dop MVA 1.77cm2 Aortic Valve Aortic Valve Aortic Stenosis V1 1.18m/s AO Mean GR. 5mmHg V2 1.51m/s AO Peak GR. 9mmHg LVOT Diameter 2.1 (1.8-2.4cm) Doppler ALEX 2.71cm2 Pulmonic Valve V2 0.91m/s Tricuspid Valve TR Velocity 2.06m/s RVSP 21mmHg Conclusion Left ventricle: The cavity size is normal. Systolic function is normal. Calculated ejection fraction is 60%. Diastolic function is normal. Right ventricle: Systolic function is normal. Estimated RVSP is 21 mm Hg Aortic valve: the valve is tricuspid. There is no aortic stenosis or aortic regurgitation. Mitral valve: There is trace mitral regurgitation. There is no mitral stenosis. Tricuspid valve: There is mild tricuspid regurgitation. Pericardium: There is no pericardial effusion. Inferior vena cava catheterization the vessel is normal in size. There is normal respiratory phasic variation consistent with a right ischial pressure of3 mm Hg
[2025-02-22 01:00] VITALS: BP 118/70; PULSE 57; RESP 18; TEMP 98.2; O2SAT 94
[2025-02-22 05:00] VITALS: BP 122/72; PULSE 57; RESP 18; TEMP 98.4; O2SAT 99
[2025-02-22 06:35] LABS: Chloride 103 mmol/L (98-107); Potassium 4.0 mmol/L (3.5-5.1); Sodium 138 mmol/L (136-145)
[2025-02-22 06:36] LABS: Anion Gap 10 (5-15); Carbon Dioxide 25 mmol/L (20-31)
[2025-02-22 06:37] LABS: Calcium 10.0 mg/dL (8.7-10.4)
[2025-02-22 06:41] LABS: Glucose 94 mg/dL (74-106)
[2025-02-22 06:42] LABS: BUN/Creatinine Ratio 14.0 (10.0-20.0); Blood Urea Nitrogen 14 mg/dL (9-23)
[2025-02-22 08:00] VITALS: PULSE 61; RESP 17; O2SAT 100
[2025-02-22 09:00] VITALS: BP 147/94; PULSE 61; RESP 17; TEMP 98.2; O2SAT 100
[2025-02-22] MEDS: ACETAMINOPHEN 325 MG TAB PO PRN (09:07)
[2025-02-22] MEDS ORDERED: AMLO1TAB22 PO (11:13)
[2025-02-22] MEDS ORDERED: LOSA-534 PO (11:13)
--- NOTE | 2025-02-22 11:14 | DVHDS2 ---
Discharge Summary Date of Admission Feb 20, 2025 at 09:54 Date of Discharge: Feb 22, 2025 Labs/Diagnostic Data: Laboratory Results Test 02/22/25 05:43 02/21/25 05:56 02/20/25 11:05 02/20/25 08:02 Sodium Level 138 mmol/L (136-145) Potassium Level 4.0 mmol/L (3.5-5.1) Chloride Level 103 mmol/L (98-107) Carbon Dioxide Level 25 mmol/L (20-31) Anion Gap 10 (5-15) Blood Urea Nitrogen 14 mg/dL (9-23) Creatinine 1.00 mg/dL (0.700-1.30) Glomerular Filtration Rate Calc 87 mL/min (>90) BUN/Creatinine Ratio 14.0 (10.0-20.0) Serum Glucose 94 mg/dL (74-106) Calcium Level 10.0 mg/dL (8.7-10.4) White Blood Count 5.4 10^3/uL (4.4-10.8) Red Blood Count 4.57 10^6/uL (4.5-5.90) Hemoglobin 14.2 g/dL (13.5-17.5) Hematocrit 41.4 % (41.0-53.0) Mean Corpuscular Volume 90.6 fL (80.0-100.0) Mean Corpuscular Hemoglobin 31.1 pg (28.0-32.0) Mean Corpuscular Hemoglobin Concent 34.3 g/dL (32.0-36.0) Red Cell Distribution Width 13.7 % (11.8-14.3) Platelet Count 235 10^3/uL (140-450) Mean Platelet Volume 7.2 fL (6.9-10.8) Neutrophils (%) (Auto) 63.5 % (37.0-80.0) Lymphocytes (%) (Auto) 26.8 % (10.0-50.0) Monocytes (%) (Auto) 7.1 % (0.0-12.0) Eosinophils (%) (Auto) 2.4 % (0.0-7.0) Basophils (%) (Auto) 0.2 % (0.0-2.0) Neutrophils # (Auto) 3.4 10 ^3/uL (1.6-8.6) Lymphocytes # (Auto) 1.5 10 ^3/uL (0.4-5.4) Monocytes # (Auto) 0.4 10 ^3/uL (0-1.3) Eosinophils # (Auto) 0.1 10 ^3/uL (0-0.8) Basophils # (Auto) 0 10 ^3/uL (0-0.2) Nucleated Red Blood Cells 0.0 % Total Bilirubin 0.7 mg/dL (0.2-1.0) Aspartate Amino Transferase (AST) 20 U/L (13-40) Alanine Aminotransferase (ALT) 21 U/L (7-40) Alkaline Phosphatase 78 U/L (46-116) Total Protein 6.8 g/dL (5.7-8.2) Albumin 4.0 g/dL (3.2-4.8) D-Dimer, Quantitative 0.29 mg/L FEU (0.0-0.49) B-Type Natriuretic Peptide 31.51 pg/mL (0-100) Urine Color Colorless (Yellow) Urine Clarity Clear (Clear) Urine pH 7.0 (5.0-9.0) Urine Specific [place] 1.010 (1.001-1.035) Urine Protein Negative (Negative) Urine Ketones Negative (Negative) Urine Blood Negative /uL (Negative) Urine Nitrite Negative (Negative) Urine Bilirubin Negative (Negative) Urine Urobilinogen Normal mg/dL (Negative) Urine Leukocyte Esterase Negative /uL (Negative) Urine RBC <1 /hpf (0 - 3) Urine Microscopic WBC < 1 /HPF (0-3) Urine Squamous Epithelial Cells None seen /hpf (<5) Urine Bacteria None seen /hpf (None Seen) Urine Glucose Normal mg/dL (Normal) Urine Opiates Screen Neg (NEGATIVE) Urine Fentanyl Screen Neg (NEGATIVE) Urine Barbiturates Screen Neg (NEGATIVE) Urine Phencyclidine Screen Neg (NEGATIVE) Urine Amphetamines Screen Neg (NEGATIVE) Urine Benzodiazepines Screen Neg (NEGATIVE) Urine Cocaine Screen Neg (NEGATIVE) Urine Cannabinoids Screen Pos (NEGATIVE) Test 02/20/25 07:52 02/20/25 06:47 Direct Bilirubin 0.1 mg/dL (<0.3) Troponin I High Sensitivity 3 ng/L (</=54) Triglycerides Level 66 mg/dL (< 150) Cholesterol Level 237 mg/dL (< 200) LDL Cholesterol 117 mg/dL (< 100) HDL Cholesterol 104 mg/dL (40-59) Thyroid Stimulating Hormone (TSH) 2.75 uIU/mL (0.55-4.78) Hemoglobin A1c 5.7 % A1C (<5.7) Other Laboratory Tests 02/22/25 05:43 02/21/25 05:56 Brief Hx & Hospital Course: 59-year-old male patient with past medical history of hypertension presented with complaints of dizziness, chest pain, shortness of breath, bilateral lower extremity swelling and elevated blood pressure for one day. Patient mentioned that yesterday he started having dizziness and felt lethargic, mentioned "could not grab what is happening", was noted by and decided to come to the ER. He also mentioned associated chest pain which increased on deep breathing, increased on activity, no improvement with lying flat or leaning forward, sharp in quality, substernal in location. Patient mentioned that his blood pressure in the home was in 180s. He mentioned that in last weaker in [facility] he was previously admitted for similar complaints, and was told by the doctor that he has an abnormal EKG and abnormal lab values. He does not remember the specific lab values that were elevated. Patient also mentioned that yesterday he noticed bilateral lower extremity edema while he was sitting on the chair, but today does not mentioned of any complaints of edema. Patient said that he has not walked one mile in a long time, but feels shortness of breath sometimes when he is going to the restroom. He also mentioned occasionally waking up in the night catching breath. He denied any palpitations, headache, nausea, vomiting, abdominal pain, diarrhea, constipation. 02/21: Waiting for echocardiogram. We will stop hydrochlorothiazide/chlorthalidone. We will continue amlodipine 5, continue losartan 50. We will start tamsulosin 0.4. Holding off finasteride. Per patient request. We will do postvoid residual, concern for BPH.. No rales, no pedal edema, no complaints of dyspnea on exertion. Low concern for CHF but we will get echo cardiogram given the concern for significant severe hypertension. 02/22: BP stable. stable for discharge. see plan below. echo nonconerning no LVH. Diagnosis: Hypertensive crisis, Hypertensive urgency essential hypertension resistant hypertension possible BPH likely Chest pain, likely due to above, Hypertensive heart disease ruled out LVH ruled out ruled out diastolic heart failure Hyperlipidemia plan: - amlodipine 5 daily - losartan 50 daily - hold off flomax and chlorthalidone - BP log to followup with PCP Condition at Discharge: Fair Final Diagnosis/Problems List Hypertensive crisis, Hypertensive urgency essential hypertension , resistant hypertension possible BPH likely Chest pain, likely due to above, Hypertensive heart disease ruled out LVH ruled out ruled out diastolic heart failure Hyperlipidemia Discharge Disposition: Home Discharge Instruct/Medications Scheduled Atorvastatin Calcium (Atorvastatin Calcium), 1 TAB PO DAILY, (Reported) Chlorthalidone (Chlorthalidone), 1 TAB PO DAILY, (Reported) Losartan Potassium (Losartan Potassium), 1 TAB PO DAILY, (Reported) Discharge Statement: "Patient was advised to return to the ER or call 911 if any headaches, dizziness, shortness of breath, chest pain, abdominal pain, bleeding, fevers, or worsening of medical condition. Patient was counseled about treatment plan, medications, possible side effects, patientverbalized understanding. All questions were answered to the best of my ability. This discharge took greater then 30 minutes in planning, reviewing documentation, counseling the patient, and discussing with other team members." ASSESSMENT ASSESSMENT Assessment Date of Service: Feb 22, 2025 Billing Provider: WANDY MESA MD Common Visit Codes: [id number] DISCH DAY >30min WANDY MESA MD Feb 22, 2025 11:14
[2025-02-22 12:29] VITALS: BP 130/75; PULSE 77; RESP 19; TEMP 98.2; O2SAT 99
== END 2025-02-22 13:00 | disposition home or self-care (01) | DRG 305 ==
LOC: ER 05:50 → OVERFLOW 09:54 → TELE-EAST 21:04
PROVIDERS: ADMIT Student in an Organized Health Care Education/Training Program; ATTEND Student in an Organized Health Care Education/Training Program
DX: I16.0 Hypertensive urgency (principal); E66.9 Obesity, unspecified; F10.20 Alcohol dependence, uncomplicated; I1A.0 Resistant hypertension; E78.5 Hyperlipidemia, unspecified; R73.03 Prediabetes; N40.0 Benign prostatic hyperplasia without lower urinary tract symptoms; I10 Essential (primary) hypertension; Y90.9 Presence of alcohol in blood, level not specified; Z88.0 Allergy status to penicillin; Z82.49 Family history of ischemic heart disease and other diseases of the circulatory system; Z80.0 Family history of malignant neoplasm of digestive organs; Z68.33 Body mass index [BMI] 33.0-33.9, adult
CPT/HCPCS: 36415; 71045; 80048; 80053; 80061; 80076; 80307; 81001; 82088; 83036; 83880; 84244; 84443; 84484; 85025; 85379; 93005; 93306; 99291; 99292; G0378